=== PATIENT | male | born 1980 | race American Indian/Alaskan Native ===

== ENCOUNTER 2018-07-30 11:44 | Emergency (ER) | payer OTHER ==
[2018-07-30 12:09] VITALS: BP 112/69
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
[2018-07-30] MEDS ORDERED: IBUPROFEN PO ONE (12:16)
[2018-07-30] MEDS ORDERED: IBUPROFEN ONE (12:18)
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
--- NOTE | 2018-07-30 13:27 | XRay Report ---
LUMBOSACRAL SPINE, 3 VIEWS: History: Back pain Findings: The vertebral bodies, disk spaces and posterior elements are intact. No compression deformity or malalignment. The SI joints are symmetric and unremarkable. Impression: 1. No evidence for acute injury to the lumbar spine.
--- NOTE | 2018-07-30 13:27 | XRay Report ---
CERVICAL SPINE, 3 views: History: Neck pain. Findings: The vertebral bodies, disk spaces, posterior elements and prevertebral soft tissues are unremarkable. The dens is intact. No acute fracture or malalignment is identified. Impression: 1. No evidence for acute injury to the cervical spine.
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
== END 2018-07-30 14:18 | disposition home or self-care (01) ==
LOC: ED 11:44
DX: M25.561 Pain in right knee (principal); M54.2 Cervicalgia; M54.5 Low back pain; V49.49XA Driver injured in collision with other motor vehicles in traffic accident, initial encounter; Y93.89 Activity, other specified; Y92.410 Unspecified street and highway as the place of occurrence of the external cause; Y99.8 Other external cause status
CPT/HCPCS: 72040; 72100